=== PATIENT | male | born 1935 | race Caucasian/White ===

== ENCOUNTER 2016-09-21 13:05 | Observation (INO) | payer MEDICARE ==
[~2016-09-21 13:05] MED LIST: ALDACTAZIDE; ALDACTAZIDE 25/1 TAB; ALEVE; AMBROTOSE; ASPIR 8181 MG; ASPIR 8181 MG PO; ASPIRIN EC81 MG PO; AVODART0.5 MG PO; CARVEDILOL3.125 MG PO; CELEXA20 M2 PO; CHONDROITIN SU400 MG; CLOPIDOGREL75 M1 PO; COREG3.125 MG; COUMADIN4 M1 PO; CRANBERRY500 M5 PO; DICLOFENAC; FINASTERIDE5 M2 PO; FINASTERIDE5 MG PO; FLOMAX0.4 MG; FLUDROCORTISON0.1 M1 PO; FOLBIC TABLET1 TA1 PO; FOLIC ACID0.4 M1 PO; GLUCOSAMINE; GLUCOSAMINE500 MG; LEVETIRACETAM500 M2 PO; LEVOTHYROXINE50 MC3 PO; MIDODRINE HCL5 M1 PO; MULTIVITAMIN W/1 T; OMEPRAZOLE20 MG PO; PRILOSEC; PRILOSEC20 MG; ROSUVASTATIN5 MG/TAB PO; SINEMET 25-1001 EAC1 PO; TERAZOSIN5 MG PO; TYLENOL; TYLENOL EXTRA500 M1 PO; TYLENOL PM EX-S1 TAB; VOLTAREN75 MG; ZETIA; ZETIA10 MG; ZETIA10 MG PO; [UNRECOGNIZED DRUG - OTHER]; [UNRECOGNIZED DRUG - OTHER]; [UNRECOGNIZED DRUG - OTHER]; [UNRECOGNIZED DRUG - OTHER]
[2016-09-21 13:33] LABS: CARBON DIOXIDE-VENOUS 30 mmol/L (21-33); CREATININE 1.21 mg/dl (0.67-1.17); GLUCOSE 89 mg/dl (65-120); POTASSIUM 3.8 mmol/L (3.5-5.3); SODIUM 141 mmol/L (135-146); eGFR VALUE FOR BLACK 64 mL/Min
[2016-09-21 13:34] LABS: BASO % 0.9 % (0-2); BASO ABSOLUTE COUNT 0.1 tho/cmm (0.0-0.2); EOS % 2.4 % (0-7); EOSINOPHIL ABSOLUTE COUNT 0.2 tho/cmm (0.0-0.7); HCT-HEMATOCRIT 44.5 % (36.0-53.5); HGB-HEMOGLOBIN 15.5 gm/dl (13.5-17.0); IMMATURE GRANULOCYTES ABSOLUTE 0.01 tho/cmm (0-0.03); IMMATURE GRANULOCYTES PERCENT 0.2 % (0-0.3); LYMPH % 25.6 % (20-45); LYMPH ABSOLUTE COUNT 1.7 tho/cmm (0.8-4.5); MCHC MEAN CORPUSCULAR HGB CONC 34.8 % (32.0-36.0); MCV (MEAN CELL VOLUME) 91.8 fl (82.0-96.0); MEAN PLATELET VOLUME 11.3 cmc (9.4-12.4); MONO % 23.6 % (0-12); MONOCYTE ABSOLUTE COUNT 1.6 tho/cmm (0.0-1.2); NEUTROPHIL ABSOLUTE COUNT 3.1 tho/cmm (1.6-8.0); NEUTROPHIL-AUTOMATED 3.1 tho/cmm (1.6-8.0); NEUTROPHILS % 47.3 % (40-80); PLATELET COUNT 209 tho/cmm (150-450); RED BLOOD COUNT 4.85 mil/cmm (4.40-5.70); RED CELL DISTRIBUTION WIDTH 14.3 % (12.4-16.4); WHITE BLOOD COUNT 6.6 tho/cmm (4.0-10.0)
[2016-09-21 13:39] LABS: INR 2.7 INR (0.9-1.1); PROTHROMBIN TIME 32.9 SECONDS (9.0-13.6)
[2016-09-21 13:52] LABS: ESR-ERYTHROCYTE SED RATE 5 mm/hr (0-20)
[2016-09-21 13:53] LABS: ALB/GLOB RATIO 1.1 (0.8-2.0); ALBUMIN 3.8 g/dl (3.5-5.0); ALKALINE PHOSPHATASE 92 U/L (33-138); ALT/SGPT 10 U/L (12-78); AST/SGOT 23 U/L (10-40); BILIRUBIN,TOTAL 0.7 mg/dl (0.0-1.5); BLOOD UREA NITROGEN 12 mg/dl (6-24); CALCIUM 8.9 mg/dl (8.5-10.5); CHLORIDE 104 mmol/l (96-110)
[2016-09-21 13:54] LABS: ANION GAP 11 mmol/L (0-20)
[2016-09-22 06:48] LABS: INR 2.9 INR (0.9-1.1); PROTHROMBIN TIME 34.3 SECONDS (9.0-13.6)
[2016-09-22 06:56] LABS: ANION GAP 9 mmol/L (0-20); BLOOD UREA NITROGEN 11 mg/dl (6-24); CALCIUM 8.5 mg/dl (8.5-10.5); CARBON DIOXIDE-VENOUS 31 mmol/L (22-32); CHLORIDE 105 mmol/l (96-110); CHOLESTEROL 172 mg/dl (120-200); CREATININE 1.15 mg/dl (0.60-1.30); GLUCOSE 89 mg/dL (70-110); HDL CHOLESTEROL 35 mg/dl (40-60); LDL CHOLESTEROL 107 mg/dl (0-99); POTASSIUM 3.9 mmol/L (3.7-5.1); SODIUM 141 mmol/L (135-145); VLDL 31 mg/dl (0-30); eGFR VALUE FOR BLACK 68 mL/Min
[2016-09-22 07:07] LABS: TRIGLYCERIDES 154 mg/dl (<149)
[2017-02-14] MEDS ORDERED: SEROQUEL25 M2 PO (09:46)
[2017-02-14] MEDS ORDERED: TYLENOL325 M2 PO (09:46)
== END 2016-09-22 14:54 ==
LOC: EDMED 13:05 → EMR2 16:51 → 5EB 20:04
PROVIDERS: Emergency Medicine; ADMIT Hospitalist
DX: G45.9 Transient cerebral ischemic attack, unspecified (principal); F80.2 Mixed receptive-expressive language disorder; I95.1 Orthostatic hypotension; I25.10 Atherosclerotic heart disease of native coronary artery without angina pectoris; E78.5 Hyperlipidemia, unspecified; N28.9 Disorder of kidney and ureter, unspecified; I10 Essential (primary) hypertension; E03.9 Hypothyroidism, unspecified; Z79.01 Long term (current) use of anticoagulants; Z79.82 Long term (current) use of aspirin; Z79.899 Other long term (current) drug therapy; Z88.8 Allergy status to other drugs, medicaments and biological substances; Z95.1 Presence of aortocoronary bypass graft; Z95.2 Presence of prosthetic heart valve; Z98.890 Other specified postprocedural states
CPT/HCPCS: G0378; G8978-GP-CJ; G8979-GP-CJ; G8980-GP-CJ; G8987-GO-CK; G8988-GO-CJ; G8989-GO-CK; G9159-GN-CL; G9160-GN-CL; G9161-GN-CL

== ENCOUNTER 2016-10-29 01:03 | Inpatient (IN) | payer MEDICARE ==
[2016-10-29 01:48] LABS: INR 2.5 INR (0.9-1.1); PROTHROMBIN TIME 29.8 SECONDS (9.0-13.6)
[2016-10-29 01:53] LABS: ANION GAP 10 mmol/L (0-20); BLOOD UREA NITROGEN 11 mg/dl (6-24); CARBON DIOXIDE-VENOUS 28 mmol/L (22-32); CHLORIDE 107 mmol/l (96-110); CREATININE 1.44 mg/dl (0.60-1.30); GLUCOSE 111 mg/dL (70-110); POTASSIUM 3.9 mmol/L (3.7-5.1); SODIUM 141 mmol/L (135-145); eGFR VALUE FOR BLACK 52 mL/Min
[2016-10-29 01:54] LABS: BASO % 0.4 % (0-2); EOSINOPHIL ABSOLUTE COUNT 0.1 tho/cmm (0.0-0.7); HCT-HEMATOCRIT 40.2 % (36.0-53.5); HGB-HEMOGLOBIN 14.2 gm/dl (13.5-17.0); IMMATURE GRANULOCYTES ABSOLUTE 0.01 tho/cmm (0-0.03); IMMATURE GRANULOCYTES PERCENT 0.1 % (0-0.3); LYMPH % 16.2 % (20-45); LYMPH ABSOLUTE COUNT 1.3 tho/cmm (0.8-4.5); MCH (MEAN CORPUSCULAR HGB) 31.6 pg (28.0-32.0); MCHC MEAN CORPUSCULAR HGB CONC 35.3 % (32.0-36.0); MCV (MEAN CELL VOLUME) 89.3 fl (82.0-96.0); MEAN PLATELET VOLUME 10.9 cmc (9.4-12.4); MONO % 22.6 % (0-12); MONOCYTE ABSOLUTE COUNT 1.8 tho/cmm (0.0-1.2); NEUTROPHIL ABSOLUTE COUNT 4.8 tho/cmm (1.6-8.0); NEUTROPHIL-AUTOMATED 4.8 tho/cmm (1.6-8.0); NEUTROPHILS % 59.7 % (40-80); PLATELET COUNT 178 tho/cmm (150-450); RED CELL DISTRIBUTION WIDTH 13.8 % (12.4-16.4)
[2016-10-29 03:03] LABS: URINE APPEARANCE CLEAR; URINE BILIRUBIN NEGATIVE (NEG); URINE BLOOD SMALL (NEG); URINE COLOR YELLOW; URINE GLUCOSE (UA) NEGATIVE (NEG); URINE KETONE NEGATIVE (NEG); URINE LEUKOCYTE ESTERASE NEGATIVE (NEG); URINE NITRITE NEGATIVE (NEG); URINE PROTEIN SMALL (NEG)
[2016-10-29 03:12] LABS: URINE WBC 0-1 /[HPF] (0-5)
[2016-10-29 05:28] LABS: C-REACTIVE PROTEIN 0.9 mg/dl (0-0.9)
[2016-10-29 05:30] LABS: TSH-THYROID STIMULATING HORM. 4.1 uIU/ml (0.40-3.80)
[2016-10-29 05:43] LABS: URINE SODIUM-RANDOM 51 mmol/L (20-110)
[2016-10-30 06:23] LABS: INR 2.9 INR (0.9-1.1); PROTHROMBIN TIME 34.5 SECONDS (9.0-13.6)
[2016-10-31 04:59] LABS: INR 2.9 INR (0.9-1.1); PROTHROMBIN TIME 34.8 SECONDS (9.0-13.6)
[2016-11-01 07:42] LABS: PROTHROMBIN TIME 36.1 SECONDS (9.0-13.6)
[2017-02-14] MEDS ORDERED: SEROQUEL25 M2 PO (09:46)
[2017-02-14] MEDS ORDERED: TYLENOL325 M2 PO (09:46)
== END 2016-11-01 15:56 | DRG 884 ==
LOC: EDMED 01:03 → EMR2 04:19 → 5EA 05:45
PROVIDERS: Emergency Medicine; Registered Nurse; ADMIT Internal Medicine
DX: F01.50 Vascular dementia, unspecified severity, without behavioral disturbance, psychotic disturbance, mood disturbance, and anxiety (principal); G93.40 Encephalopathy, unspecified; I65.22 Occlusion and stenosis of left carotid artery; R44.2 Other hallucinations; G40.909 Epilepsy, unspecified, not intractable, without status epilepticus; I95.1 Orthostatic hypotension; E03.9 Hypothyroidism, unspecified; R41.0 Disorientation, unspecified; E78.5 Hyperlipidemia, unspecified; N40.0 Benign prostatic hyperplasia without lower urinary tract symptoms; I10 Essential (primary) hypertension; M19.90 Unspecified osteoarthritis, unspecified site; Z96.641 Presence of right artificial hip joint; I25.10 Atherosclerotic heart disease of native coronary artery without angina pectoris; Z96.651 Presence of right artificial knee joint; I73.89 Other specified peripheral vascular diseases; Z79.01 Long term (current) use of anticoagulants; Z86.73 Personal history of transient ischemic attack (TIA), and cerebral infarction without residual deficits; Z72.820 Sleep deprivation; Z95.2 Presence of prosthetic heart valve
CPT/HCPCS: A9577; G8978-GO-CK; G8978-GP-CL; G8979-GO-CJ; G8979-GP-CJ; G8980-GO-CK; G8987-GO-CK; G8988-GO-CJ; G8989-GO-CK; J7030